=== PATIENT | male | born 1950 | race Caucasian/White ===

== ENCOUNTER → 2016-08-21 | Outpatient (CLI) | payer OTHER ==
[~2016-08-21] MED LIST: ALBU1AER9 INH; ATOR-22 PO; FLNIN NAE; LISI-461 PO; OMEP20CA9 PO; TAMS0.4C38 PO
[2016-08-21 13:34] LABS: BASO % 0.6 %; BASO ABS # 0.05 K/uL (0-0.2); COMPLETE YES; EOS % 2.5 %; IG% 0.7 %; LYMPH % 36.3 %; LYMPH ABS # 2.93 K/uL (1.2-3.4); MEAN CELL VOLUME 87.4 fL (80-100); MEAN CORPUSCULAR HEMOGLOBIN 30.9 pg (25-34); MEAN CORPUSCULAR HGB CONC 35.3 g/dl (32-36); MEAN PLATELET VOLUME 9.4 fL (7.4-10.4); NEUT % 48.9 %; PLATELET COUNT 249 K/uL (130-400); RED BLOOD COUNT 4.92 M/uL (4.7-6.1); WHITE BLOOD COUNT 8.08 K/uL (4.8-10.8)
[2016-08-21 14:12] LABS: ESTIMATED AVERAGE GLUCOSE 114 mg/dl; HA1C FLAG Normal (Normal)
[2016-08-21 14:37] LABS: ALT/SGPT 23 U/L (12-78); AST/SGOT 15 U/L (15-37); BLOOD UREA NITROGEN 24 mg/dl (7-18); BUN/CREATININE RATIO 29.3 (10-20); CALCIUM 8.8 mg/dl (8.5-10.1); CARBON DIOXIDE 22 mmol/L (21-32); CHLORIDE 107 mmol/L (98-107); CHOLESTEROL 152 mg/dl (0-200); CREATININE 0.82 mg/dl (0.60-1.40); GLUCOSE 105 mg/dl (70-99); HDL CHOLESTEROL 51 mg/dl; SODIUM 141 mmol/L (136-145)
[2016-08-21 14:49] LABS: LDL CHOLESTEROL CALCULATED 85 mg/dl; TRIGLYCERIDES 80 mg/dl (0-150); VERY LOW DENSITY LIPOPROT CALC 16 mg/dl
--- NOTE | 2016-08-26 10:34 | CODING QUERY MEDICAL NECESSITY ---
SUPPORTING DIAGNOSIS NEEDED A supporting diagnosis is required for the test/procedure performed on this patient in order for us to be reimbursed by the patient's insurance. Please provide a supporting diagnosis for the following test/procedure listed below next to the test name along with your signature. *If there is no additional diagnosis for this patient that would support the following test/procedure please document that below next to the test/procedure. Test(s)/Procedure(s) that require a supporting diagnosis: * GLYCATED HEMOGLOBIN DIAGNOSIS: * DOS: 08/21/16 Provider Signature: Date: Thank you Josephine Nielsen [facility] Information Management Once completed, please kindly fax back to [phone] For questions please call [phone]
== END | disposition home or self-care (01) ==
LOC: C.LABBC 09:28
PROVIDERS: ATTEND Internal Medicine
DX: M54.9 Dorsalgia, unspecified (principal); M19.90 Unspecified osteoarthritis, unspecified site; N40.1 Benign prostatic hyperplasia with lower urinary tract symptoms; R73.9 Hyperglycemia, unspecified

== ENCOUNTER → 2017-12-07 | Outpatient (CLI) | payer OTHER | END | disposition home or self-care (01) | LOC: C.LABBC 11:03 | PROVIDERS: ATTEND Urology | DX: Z00.00 Encounter for general adult medical examination without abnormal findings (principal); R97.20 Elevated prostate specific antigen [PSA]; N40.1 Benign prostatic hyperplasia with lower urinary tract symptoms ==

== ENCOUNTER → 2018-02-25 | Outpatient (CLI) | payer OTHER ==
--- NOTE | 2018-02-25 10:38 | DIAGNOSTIC IMAGING REPORT ---
L RIBS UNILATERAL WITH PA CHEST CLINICAL HISTORY: Left-sided chest pain. COMPARISON STUDY: Chest 09/07/2012. FINDINGS: The lungs are clear. The heart is normal in size. No pleural effusions. No pneumothorax. No rib fractures. IMPRESSION: No acute process within the chest. Specifically, no rib fractures. Electronically signed by: Zeke Cross M.D. 02/25/2018 10:37 AM Dictated Date/Time: 02/25/2018 10:34 AM
== END | disposition home or self-care (01) ==
LOC: C.RAD1850 10:00
PROVIDERS: ATTEND Physician Assistant
DX: M54.9 Dorsalgia, unspecified (principal); R07.81 Pleurodynia; R07.9 Chest pain, unspecified

== ENCOUNTER → 2018-03-08 | Outpatient (CLI) | payer OTHER ==
--- NOTE | 2018-03-08 20:28 | DIAGNOSTIC IMAGING REPORT ---
CERVICAL SPINE MRI HISTORY: M54.9 Chronic back painR20.0 Numbness of legsM54.9 Upper back pa TECHNIQUE: Multiplanar multisequence MRI of the cervical spine was performed without the use of contrast. COMPARISON STUDY: None. FINDINGS: No fracture or subluxation within the cervical spine. Prevertebral soft tissues and the C1-C2 interval are well-maintained. Normal marrow signal intensity seen throughout the visualized osseous structures. The cervical spinal cord is normal in course, caliber, and signal intensity. The visualized posterior fossa is unremarkable. Mild facet degenerative changes throughout the cervical spine. Mild disc space narrowing at C4-C5, C5-C6, C6-C7, and C7-T1. C2-C3: No significant central canal or neural foraminal narrowing. C3-C4: No significant central canal or right-sided neural foraminal narrowing. There is moderate left-sided neural foraminal narrowing due to the uncovertebral and facet hypertrophy. C4-C5: Small broad-based posterior disc bulge which abuts but does not deform the anterior cord. There is moderate to severe right and severe left neural foraminal narrowing due to the uncovertebral and facet hypertrophy. C5-C6: Small broad-based posterior disc osteophyte complex asymmetric to the right. This abuts but does not deform the right anterior cord. There is also severe right-sided neural foraminal narrowing and mild left-sided neural foraminal narrowing. C6-C7: Small broad-based posterior disc bulge resulting in partial effacement of the anterior thecal sac without cord deformity. There is mild to moderate left and severe right neural foraminal narrowing due to the uncovertebral hypertrophy. C7-T1: Small left paracentral/foraminal disc extrusion which measures 5 mm. This compresses the exiting nerve root at this level. However, there is no significant central canal or right-sided neural foraminal narrowing. IMPRESSION: 1. A small left paracentral/foraminal disc extrusion at C7-T1 which compresses the exiting nerve root at this level. 2. Additional degenerative disc disease and facet osteoarthritis as described above. This results in multilevel mild central canal and bilateral neural foraminal narrowing. 3. No fracture or subluxation. Electronically signed by: Zeke Cross M.D. 03/08/2018 8:27 PM Dictated Date/Time: 03/08/2018 8:19 PM
--- NOTE | 2018-03-08 21:04 | DIAGNOSTIC IMAGING REPORT ---
THORACIC SPINE MRI HISTORY: M54.9 Chronic back painR20.0 Numbness of [id number] TECHNIQUE: Multiplanar multisequence MRI of the thoracic spine was performed without the use of contrast. COMPARISON: None. FINDINGS: Mild anterior wedging within the T12 vertebral body consistent with an old compression deformity. No acute fracture or subluxation within the thoracic spine. There is a 7 mm hemangioma within the T6 vertebral body. Otherwise, there is a normal marrow signal intensity seen throughout the visualized osseous structures. No disc herniations. Small disc bulge at T11-T12 without significant central canal narrowing. There is no significant central canal or neural foraminal narrowing within the thoracic spine. The thoracic spinal cord demonstrates a normal course, caliber, and signal intensity. Paraspinal soft tissues are unremarkable. Mild disc desiccation and disc space narrowing throughout the majority of the thoracic spine. IMPRESSION: 1. Old mild anterior wedge-shaped compression deformity at T12. No significant retropulsion. No acute fracture or subluxation within the thoracic spine. 2. Small broad-based posterior disc bulge at T11-T12. However, there is no significant central canal or neural foraminal narrowing within the thoracic spine. 3. The thoracic spinal cord is within normal limits. Electronically signed by: Zeke Cross M.D. 03/08/2018 9:03 PM Dictated Date/Time: 03/08/2018 8:57 PM
--- NOTE | 2018-03-08 21:09 | DIAGNOSTIC IMAGING REPORT ---
LUMBAR SPINE MRI HISTORY: R20.0 Numbness of legs [id number] TECHNIQUE: Multiplanar multisequence MRI of the lumbar spine was performed without the use of contrast. COMPARISON: None. FINDINGS: For the purpose of the report the L5-S1 disc space will be located on axial image . There is again noted an old mild anterior wedge-shaped compression deformity at T12. There is also an old mild superior endplate compression deformity at L3. No associated retropulsion. No acute fracture or subluxation within the lumbar spine. The conus terminates at the L1-L2 disc space level. Mild disc space narrowing at L1-L2, L3, L3-L4. Moderate disc space narrowing at L5-S1. Paraspinal soft tissues are unremarkable. Partially visualized left renal T2 hyperintense lesions likely representing cysts. A 5 mm hemangioma at L4. L1-L2: Small broad-based posterior disc bulge without significant central canal or neural foraminal narrowing. L2-L3: Small broad-based posterior disc bulge with a tiny focal central disc protrusion. This results in mild central canal narrowing. No significant neural foraminal narrowing. L3-L4: Small broad-based posterior disc bulge without significant central canal or neural foraminal narrowing. L4-L5: No significant central canal or left-sided neural foraminal narrowing. There is mild right-sided neural foraminal narrowing. L5-S1: Small broad-based posterior disc osteophyte complex without significant central canal narrowing. There is severe right and moderate left neural foraminal narrowing due to the disc bulge and facet hypertrophy. IMPRESSION: 1. No acute fracture or subluxation within the lumbar spine. 2. Old mild superior endplate compression deformity at L3. 3. Mild to moderate degenerative disc disease as described above. This is most pronounced at the L2-L3 and L5-S1 levels. Electronically signed by: Zeke Cross M.D. 03/08/2018 9:08 PM Dictated Date/Time: 03/08/2018 9:03 PM
== END | disposition home or self-care (01) ==
LOC: C.MRI 18:20
PROVIDERS: ATTEND Internal Medicine
DX: M54.9 Dorsalgia, unspecified (principal); R20.0 Anesthesia of skin; M50.20 Other cervical disc displacement, unspecified cervical region; M51.24 Other intervertebral disc displacement, thoracic region